=== PATIENT | male | born 1940 | race Caucasian/White ===

== ENCOUNTER 2024-08-24 10:06 | Outpatient (CLI) | payer MEDICARE ==
[2024-08-24 11:19] LABS: Hematocrit 41.7 % (38.8-50.0); Hemoglobin 13.9 g/dL (13.5-17.5); Mean Corpuscular HGB CONC 33.3 g/dL (32.0-36.0); Mean Corpuscular Hemoglobin 30.4 pg (27.0-33.0); Mean Corpuscular Volume 91.2 fL (81.2-95.1); Mean Platelet Volume 9.6 fL (7.4-10.4); Platelet Count 168 10x3/uL (150-450); RBC Distribution Width 14.8 % (11.5-14.5); Red Blood Cell (RBC) Count 4.57 10x6/uL (4.32-5.72); White Blood Cell (WBC) Count 5.35 10x3/uL (3.5-10.5)
[2024-08-24 11:55] LABS: Anion Gap 11 mmol/L (10-20); BUN (Urea Nitrogen) 14 mg/dL (8.4-25.7); Calc. Creatinine Clearance 0 mL/min (70-130); Calcium 9.2 mg/dL (7.8-10.44); Carbon Dioxide 25 mmol/L (23-31); Chloride 108 mmol/L (98-107); Estimated GFR 50; Glucose 107 mg/dL (83-110); Potassium 4.6 mmol/L (3.5-5.1); Sodium 139 mmol/L (136-145)
== END 2024-08-24 10:07 | disposition home or self-care (01) ==
LOC: CSHLAB 10:06
PROVIDERS: ATTEND Otolaryngology
DX: Z01.812 Encounter for preprocedural laboratory examination (principal); J38.01 Paralysis of vocal cords and larynx, unilateral; R13.10 Dysphagia, unspecified
CPT/HCPCS: 80048; 85027

== ENCOUNTER 2024-08-29 05:39 | Day surgery (SDC) | payer MEDICARE ==
[2024-08-24 10:59] VITALS: BMI 27.4
[2024-08-29] MEDS ORDERED: Dexmedetomidine 200 MCG/2 ML VIAL ONE (06:18)
[2024-08-29] MEDS ORDERED: Propofol 1,000 MG/100 ML VIAL IV ONE (06:18)
[2024-08-29] MEDS ORDERED: Sevoflurane 250 ML INH ANEST BOTTLE ONE (06:19)
[2024-08-29] MEDS ORDERED: EPINEPHrine 1 MG/ML VIAL ONE (07:15)
[2024-08-29] MEDS ORDERED: Dexamethasone 20 MG/5 ML VIAL ONE (07:22)
[2024-08-29] MEDS ORDERED: PROPOFOL 20 ML ONE (07:22)
[2024-08-29] MEDS ORDERED: Midazolam HCl 2 mg/2 ml Vial ONE (07:22)
[2024-08-29] MEDS ORDERED: Ondansetron PF 4 MG/2 ML Vial ONE (07:22)
[2024-08-29] MEDS ORDERED: fentaNYL 50 mcg/mL 1 mL Vial ONE (07:22)
[2024-08-29] MEDS ORDERED: Lidocaine 1% PF 5 ML VIAL ONE (07:22)
[2024-08-29] MEDS ORDERED: AFRIN NASAL MIST 15 ML BOT ONE (07:34)
[2024-08-29] MEDS ORDERED: Oxymetazoline HCl 0.05% ( 15 ML ) ONE (07:50)
== END 2024-08-29 10:30 | disposition home or self-care (01) ==
LOC: CSHSDC 05:39
PROVIDERS: ATTEND Otolaryngology
PROC: 3E0F8GC Introduction of Other Therapeutic Substance into Respiratory Tract, Via Natural or Artificial Opening Endoscopic (ICD-10-PCS; principal; 2024-08-29)
DX: J38.01 Paralysis of vocal cords and larynx, unilateral (principal); R13.10 Dysphagia, unspecified; H26.9 Unspecified cataract; G47.30 Sleep apnea, unspecified; I10 Essential (primary) hypertension; G47.33 Obstructive sleep apnea (adult) (pediatric); I25.10 Atherosclerotic heart disease of native coronary artery without angina pectoris; E78.5 Hyperlipidemia, unspecified; E03.9 Hypothyroidism, unspecified; Z79.890 Hormone replacement therapy; Z79.02 Long term (current) use of antithrombotics/antiplatelets; Z87.891 Personal history of nicotine dependence; Z88.1 Allergy status to other antibiotic agents; Z90.5 Acquired absence of kidney; Z79.899 Other long term (current) drug therapy; Z85.118 Personal history of other malignant neoplasm of bronchus and lung; Z98.890 Other specified postprocedural states
CPT/HCPCS: 31571; J1100; J2250; J2405; J2704 ×2; J3010; L8607; J0171